=== PATIENT | male | born 1960 | race Caucasian/White ===

== ENCOUNTER 2017-11-10 23:48 | Inpatient (IN) | payer BC ==
[~2017-11-10] VITALS: Ht 182.9 cm; Wt 0.9 kg
[~2017-11-10 23:48] MED LIST: AUGMENTIN 875875 M1 PO; FLOMAX PO; FLURBIPROFEN; HYDROCODONE-AP1 EAC6 PO; LEXAPRO 10 MG T10 M2 PO; NORCO 10-325 T1 EACH PO; NORCO 5-325 TA1 EACH PO; PERCOCET 5-3251 EACH PO; PRILOSEC 10MG C10 MG PO; TAMSULOSIN HCL0.4 M1; VALIUM5 MG PO; VICODIN 5-3001 EACH PO; [UNRECOGNIZED DRUG - OTHER]
[2017-11-11] MEDS ORDERED: FLOMAX0.4 MG PO
[2017-11-11] MEDS ORDERED: CHOLESTEROL MED PO
[2017-11-11] MEDS ORDERED: FLEXERIL PO
[2017-11-11 00:01] VITALS: BP 146/97
[2017-11-11 00:13] LABS: ABSOLUTE BASOPHILS 0.1 thou/uL (0.0-0.2); ABSOLUTE EOSINOPHILS 0.2 thou/uL (0.0-0.7); ABSOLUTE LYMPHOCYTES 2.2 thou/uL (0.8-5.3); ABSOLUTE MONOCYTES 0.6 thou/uL (0.0-1.2); ABSOLUTE NEUTROPHILS 7.9 thou/uL (1.6-8.1); BASOPHILS 0.8 %; EOSINOPHILS 1.4 %; HEMATOCRIT 37.1 % (42.0-52.0); HEMOGLOBIN 13.1 gm/dL (14.0-18.0); LYMPHOCYTES 19.8 %; MCH 31.7 pg (26.0-34.0); MCHC 35.2 g/dL (28.0-37.0); MONOCYTES 5.3 %; MPV 8.1 fl. (7.2-11.1); NUCLEATED RBCS 0 /100WBC; PLATELET COUNT* 339 thou/uL (150-400); POLYS 72.7 %; RBC 4.12 mil/uL (4.50-6.00); WBC 10.9 thou/uL (4.0-11.0)
[2017-11-11 00:15] LABS: URINE BILIRUBIN NEGATIVE (Negative); URINE BLOOD 3+ (Negative); URINE COLOR RED; URINE GLUCOSE-RANDOM NEGATIVE (Negative); URINE KETONES NEGATIVE (Negative); URINE LEUKOCYTES-REFLEX NEGATIVE (Negative); URINE NITRITE-REFLEX NEGATIVE (Negative); URINE PROTEIN 3+ (Negative); URINE UROBILINOGEN 0.2 E.U./dl (0.2-1.0)
[2017-11-11 00:16] LABS: URINE CLARITY CLOUDY
[2017-11-11 00:23] LABS: CALCIUM 8.8 mg/dL (8.5-10.1); CREATININE 1.1 mg/dL (0.6-1.3); POTASSIUM 3.5 mmol/L (3.5-5.1)
[2017-11-11 00:33] LABS: ALBUMIN 4.2 g/dL (3.4-5.0); TOTAL BILIRUBIN 0.3 mg/dL (<0.1-1.0); TOTAL PROTEIN 7.9 g/dL (6.4-8.2)
[2017-11-11 00:41] LABS: CASTS None Seen /LPF (None Seen); SQUAMOUS NONE SEEN /LPF (0-3)
[2017-11-11 00:42] LABS: BACTERIA-REFLEX 1-9 Few /HPF (None Seen); CRYSTALS None Seen /LPF (None Seen); URINE RBC >20 Many /HPF (0-2); URINE WBC-REFLEX 6-15 Few /HPF (0-5)
--- NOTE | 2017-11-11 00:57 | NUR ---
CT ABD/PEL COMPLEATED [ATIENT RETURNED TO ED
[2017-11-11 02:32] VITALS: BP 108/66
[2017-11-11 02:47] VITALS: BP 150/88
--- NOTE | 2017-11-11 02:47 | NUR ---
PT ADMITTED TO FLOOR PER CART ACCOMPANIED BY ER STAFF WITH BELONGINGS. AMBULATES WITH STEADY GAIT FROM CART TO BED. ORIENTED TO ROOM AND CALL LITE. HISTORY OBTAINED AND ASSESSMENT PERFORMED, SEE ADMIT NOTES. PT STATES HIS PAIN IS BETTER BUT "ITS STILL THERE." STATES THE ANXIETY MED HE HAD IN ER "DIDNT DO A THING TO TOUCH MY ANXIETY AFTER THE NEWS I GOT". PT EDUCATED ON NPO STATUS, SMALL AMOUNT ICE CHIPS AND MOUTH SWABS, LIP MOISTURIZER GIVEN FOR COMFORT. CALL LITE IN EASY REACH. IVF PLACED ON PUMP FOR INFUSION.
--- NOTE | 2017-11-11 05:32 | NUR ---
PT HAS RESTED QUIETLY BUT NOT SLEPT SINCE ADMIT, GIRLFRIEND HERE EARLY THIS MORNING TO VISIT WITH PATIENT. RECEIVED IV ANXIETY AND PAIN MED X1 THIS SHIFT WITH FAIR RELIEF. HAS HAD SMALL AMOUNT OF ICE CHIPS, USING SWABS AND LIP MOISTURIZER FOR COMFORT. STANDING AT BEDSIDE USING URINAL TO VOID CRANBERRY URINE, NO CLOTS SEEN, 300ML. LAC IVF INFUSING PER PUMP. UROLOGY CONSULT FOR TODAY. ABLE TO USE CALL LITE AND MAKE NEEDS KNOWN.
[2017-11-11 08:00] VITALS: BP 138/66
[2017-11-11 09:40] LABS: CALCIUM 8.4 mg/dL (8.5-10.1); MAGNESIUM 1.6 mg/dL (1.8-2.4); POTASSIUM 3.3 mmol/L (3.5-5.1)
[2017-11-11 16:00] VITALS: BP 126/74
[2017-11-11 19:30] VITALS: BP 123/62
--- NOTE | 2017-11-11 20:03 | NUR ---
ASSUMED CARE THIS AM, SEE ASSESSMENT FOR DETAILS, ROMEL LUNCH/SUPPER WELL, NO BM SINCE 11/09, CT ABD/CHEST FILM COMPLETED TODAY, CHRONIC BACK PAIN MANAGED WELL WITH MEDICATION, UP AD BETO W/ STEADY GAIT, CARE PLAN REVIEWED W/ PATIENT, DENIES QUESTIONS, CONT POC.
--- NOTE | 2017-11-12 05:11 | NUR ---
PATIENT HAS REMAINED ALERT AND ORIENTED X 4 THROUGHOUT THE SHIFT AND RESTING QUIETLY ON HOURLY ROUNDS. UP IN [place] TO AMBULATE INDEPENDENTLY. STATES WALKING HELPS HIS CHRONIC BACK PAIN. ORAL AND IV MEDS ALSO PROVIDED TO GOOD EFFECT FOR MANAGEMENT OF BACK AND BLADDER PAIN. HAS VOIDED IN GOOD AMOUNTS. LAST VOID AT 0110 WITH POST VOID BLADDER SCAN OF 13ML. URINE AT THAT TIME PINK WITH ONE MOD CLOT. DID NOT CALL RESIDUAL TO PHYSICIAN RELATED TO THE TIME. WILL UPDATE DAYSHIFT ON THAT POINT. NPO AT MIDNIGHT FOR POSSIBLE CYSTOSCOPY THIS AM. PATIENT HAS BEEN SOMEWHAT ANXIOUS ABOUT POSSIBLE DIAGNOSIS. LORAZEPAM PROVIDED X 2 THIS SHIFT. VITAL SIGNS STABLE. CONTINUE TO MONITOR.
[2017-11-12 05:49] LABS: HEMATOCRIT 31.3 % (42.0-52.0); MCH 32.2 pg (26.0-34.0); MCHC 35.1 g/dL (28.0-37.0); MCV 91.8 fL (80.0-100.0); MPV 8.5 fl. (7.2-11.1); RBC 3.41 mil/uL (4.50-6.00); RDW-CV 12.9 % (10.5-14.5); WBC 7.1 thou/uL (4.0-11.0)
[2017-11-12 06:11] LABS: CALCIUM 7.9 mg/dL (8.5-10.1); CREATININE 0.9 mg/dL (0.6-1.3); MAGNESIUM 1.7 mg/dL (1.8-2.4); POTASSIUM 3.9 mmol/L (3.5-5.1)
[2017-11-12 07:45] VITALS: BP 125/77
[2017-11-12] MEDS ORDERED: HYDROXYZINE HCL25 M2 PO (08:01)
[2017-11-12 08:40] VITALS: BP 123/62
--- NOTE | 2017-11-12 09:31 | NUR ---
PATIENT DISCHARGED TO HOME. DISCHARGE PAPERS REVIEWED AND SIGNED. PRESCRIPTIONS AND INFORMATION SHEETS GIVEN. IV REMOVED. UROLOGY OFFICE TO CALL AND SCHEDULE CYSTOSCOPY, OFFICE NUMBER GIVEN. PATIENT DENIES ANY FURTHER NEEDS AT THIS TIME. PATIENT TAKEN AMBULATORY TO EXIT. LEFT WITH SON.
== END 2017-11-12 09:30 | disposition home or self-care (01) | DRG 687 ==
LOC: M.ERS 23:48 → M.TBA-ER 11-11 02:04 → M.ORTHSURG 11-11 02:04 → M.ERS 11-11 02:35 → M.ORTHSURG 11-11 02:43
PROVIDERS: Personal Emergency Response Attendant; ADMIT Internal Medicine
DX: D49.4 Neoplasm of unspecified behavior of bladder (principal); F11.20 Opioid dependence, uncomplicated; R31.0 Gross hematuria; F32.9 Major depressive disorder, single episode, unspecified; F41.0 Panic disorder [episodic paroxysmal anxiety]; N40.1 Benign prostatic hyperplasia with lower urinary tract symptoms; M06.9 Rheumatoid arthritis, unspecified; F17.210 Nicotine dependence, cigarettes, uncomplicated; G89.29 Other chronic pain; Z90.49 Acquired absence of other specified parts of digestive tract; Z79.899 Other long term (current) drug therapy; Z88.8 Allergy status to other drugs, medicaments and biological substances; Z83.3 Family history of diabetes mellitus; Z82.69 Family history of other diseases of the musculoskeletal system and connective tissue

== ENCOUNTER 2017-11-19 15:21 | Emergency (ER) | payer BC ==
[~2017-11-19] VITALS: Ht 185.4 cm; Wt 93.0 kg
[~2017-11-19 15:21] MED LIST changes: +CHOLESTEROL MED PO; +FLEXERIL PO; +FLOMAX0.4 MG PO; +HYDROXYZINE HCL25 M2 PO
[2017-11-19 15:59] VITALS: BP 137/90
== END 2017-11-19 16:00 | disposition home or self-care (01) ==
LOC: M.ERS 15:21
DX: F41.9 Anxiety disorder, unspecified (principal); G89.29 Other chronic pain; R10.30 Lower abdominal pain, unspecified; M54.9 Dorsalgia, unspecified; M06.9 Rheumatoid arthritis, unspecified; Z88.8 Allergy status to other drugs, medicaments and biological substances; Z90.49 Acquired absence of other specified parts of digestive tract

== ENCOUNTER 2019-04-08 22:46 | Emergency (ER) | payer BC ==
[~2019-04-08] VITALS: Ht 182.9 cm; Wt 90.7 kg
[2019-04-08] MEDS ORDERED: FLEXERIL PO (23:08)
[2019-04-08] MEDS ORDERED: NORCO 5-325 TA1 EAC1 PO (23:17)
[2019-04-08] MEDS ORDERED: MEDROLDOSEPACK PO (23:18)
[2019-04-08 23:48] VITALS: BP 133/80
== END 2019-04-08 23:49 | disposition home or self-care (01) ==
LOC: M.ERS 22:46
DX: M54.5 Low back pain (principal); M06.9 Rheumatoid arthritis, unspecified; Z90.49 Acquired absence of other specified parts of digestive tract

== ENCOUNTER 2019-12-20 13:49 | Emergency (ER) | payer BC ==
[~2019-12-20] VITALS: Ht 175.3 cm; Wt 86.2 kg
[~2019-12-20 13:49] MED LIST changes: +MEDROLDOSEPACK PO; +NORCO 5-325 TA1 EAC1 PO
[2019-12-20] MEDS ORDERED: LIPITOR40 MG PO (13:58)
[2019-12-20 14:41] LABS: ABSOLUTE BASOPHILS 0.1 thou/uL (0.0-0.2); ABSOLUTE EOSINOPHILS 0.1 thou/uL (0.0-0.7); ABSOLUTE LYMPHOCYTES 1.8 thou/uL (0.8-5.3); ABSOLUTE MONOCYTES 0.7 thou/uL (0.0-1.2); BASOPHILS 1.3 %; EOSINOPHILS 1.1 %; HEMATOCRIT 35.9 % (42.0-52.0); HEMOGLOBIN 12.9 gm/dL (14.0-18.0); LYMPHOCYTES 20.8 %; MCH 31.5 pg (26.0-34.0); MCHC 35.8 g/dL (28.0-37.0); MCV 87.9 fL (80.0-100.0); MONOCYTES 8.6 %; MPV 7.6 fl. (7.2-11.1); NUCLEATED RBCS 0 /100WBC; PLATELET COUNT* 277 thou/uL (150-400); POLYS 68.2 %; RBC 4.09 mil/uL (4.50-6.00); RDW-CV 12.6 % (10.5-14.5); WBC 8.7 thou/uL (4.0-11.0)
[2019-12-20 14:49] LABS: CALCIUM 8.7 mg/dL (8.5-10.1); CREATININE 1.6 mg/dL (0.6-1.3); POTASSIUM 3.5 mmol/L (3.5-5.1)
[2019-12-20 14:53] LABS: ALBUMIN 4.5 g/dL (3.4-5.0); TOTAL BILIRUBIN 0.7 mg/dL (<0.1-1.0); TOTAL PROTEIN 7.8 g/dL (6.4-8.2)
--- NOTE | 2019-12-20 15:54 | EKG ---
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 Tanner: [facility] : 1960 Requested By: Julee Calderon Order Number: [id number] MD: Horace Campo Measurements Intervals [place] Rate: 88 P: 27 [place]: 135 QRS: -46 QRSD: 125 T: 26 QT: 388 QTc: 470 Interpretive Statements Sinus rhythm Nonspecific IVCD with LAD Left ventricular hypertrophy Baseline wander in lead(s) II,III,aVR,aVL,aVF,V3,V5 No previous ECG available for comparison Electronically Signed On 12-20-2019 15:54:13 CDT by Horace Campo [email or web address] <ELECTRONICALLY SIGNED> By: Horace Campo MD, FACC 12/20/19 1554 1428 1428 Horace Campo MD, [facility] /EPI
[2019-12-20 16:18] LABS: URINE BILIRUBIN NEGATIVE (Negative); URINE BLOOD TRACE (Negative); URINE CLARITY CLEAR; URINE COLOR YELLOW; URINE GLUCOSE-RANDOM NEGATIVE (Negative); URINE KETONES NEGATIVE (Negative); URINE LEUKOCYTES-REFLEX NEGATIVE (Negative); URINE NITRITE-REFLEX NEGATIVE (Negative); URINE PROTEIN 1+ (Negative); URINE UROBILINOGEN 0.2 E.U./dl (0.2-1.0)
[2019-12-20] MEDS ORDERED: IBUPROFEN 800800 M1 PO (16:42)
[2019-12-20] MEDS ORDERED: NORCO 5-325 TA1 EAC2 PO (16:42)
[2019-12-20 16:52] VITALS: BP 139/70
== END 2019-12-20 16:53 | disposition home or self-care (01) ==
LOC: M.ERS 13:49
PROVIDERS: Nurse Practitioner Family
DX: N28.1 Cyst of kidney, acquired (principal); H20.9 Unspecified iridocyclitis; R31.9 Hematuria, unspecified; M06.9 Rheumatoid arthritis, unspecified; G89.29 Other chronic pain; Z85.51 Personal history of malignant neoplasm of bladder; Z90.49 Acquired absence of other specified parts of digestive tract

== ENCOUNTER 2020-05-24 19:24 | Emergency (ER) | payer BC ==
[~2020-05-24] VITALS: Ht 182.9 cm; Wt 95.3 kg
[~2020-05-24 19:24] MED LIST changes: +IBUPROFEN 800800 M1 PO; +LIPITOR40 MG PO; +NORCO 5-325 TA1 EAC2 PO
[2020-05-24 19:46] LABS: ABSOLUTE BASOPHILS 0.1 thou/uL (0.0-0.2); ABSOLUTE EOSINOPHILS 0.1 thou/uL (0.0-0.7); ABSOLUTE LYMPHOCYTES 1.4 thou/uL (0.8-5.3); ABSOLUTE MONOCYTES 0.3 thou/uL (0.0-1.2); ABSOLUTE NEUTROPHILS 4.8 thou/uL (1.6-8.1); EOSINOPHILS 2.1 %; HEMATOCRIT 37.5 % (42.0-52.0); HEMOGLOBIN 13.2 gm/dL (14.0-18.0); LYMPHOCYTES 20.6 %; MCH 31.9 pg (26.0-34.0); MCHC 35.2 g/dL (28.0-37.0); MCV 90.4 fL (80.0-100.0); MONOCYTES 4.2 %; MPV 7.7 fl. (7.2-11.1); NUCLEATED RBCS 0 /100WBC; PLATELET COUNT* 260 thou/uL (150-400); POLYS 72.1 %; RBC 4.15 mil/uL (4.50-6.00); WBC 6.7 thou/uL (4.0-11.0)
[2020-05-24 19:54] LABS: CALCIUM 9.1 mg/dL (8.5-10.1); CREATININE 1.1 mg/dL (0.6-1.3); POTASSIUM 4.3 mmol/L (3.5-5.1)
[2020-05-24] MEDS ORDERED: PREDNISONE50 MG PO (19:55)
[2020-05-24 19:59] LABS: TOTAL BILIRUBIN 0.5 mg/dL (<0.1-1.0); TOTAL PROTEIN 7.3 g/dL (6.4-8.2)
[2020-05-24] MEDS ORDERED: HYDROCODON-ACE1 EAC8 PO (20:10)
[2020-05-24] MEDS ORDERED: FLEXERIL PO (20:41)
[2020-05-24 21:03] VITALS: BP 128/76
== END 2020-05-24 21:04 | disposition home or self-care (01) ==
LOC: M.ERS 19:24
PROVIDERS: Emergency Medicine
DX: M54.16 Radiculopathy, lumbar region (principal); M06.9 Rheumatoid arthritis, unspecified; Z90.49 Acquired absence of other specified parts of digestive tract

== ENCOUNTER 2020-07-20 15:57 | Inpatient (IN) | payer BC ==
[~2020-07-20] VITALS: Ht 182.9 cm; Wt 90.7 kg
--- NOTE | ~2020-07-20 | PROC ---
[address] [address] PROCEDURE REPORT Name: CASSY GREGORY Room: [address] IN M.R.#: [id number] Admission: 07/20/20 Attend Phys: Francisco Jones Discharge: 07/22/20 Date of : 60 Report #: [id number] THIS REPORT FOR: cc: Jose A Lui Adam J DO [facility],Medical Records Staff ~ For GI report, please see the Provation report in Perceptive 7 content. By: 0653Medical Records Staff JONY /VIOLET
[~2020-07-20 15:57] MED LIST changes: +HYDROCODON-ACE1 EAC8 PO; +PREDNISONE50 MG PO
[2020-07-20 16:06] VITALS: BP 136/91
[2020-07-20 16:33] LABS: ABSOLUTE BASOPHILS 0.1 thou/uL (0.0-0.2); ABSOLUTE EOSINOPHILS 0.1 thou/uL (0.0-0.7); ABSOLUTE LYMPHOCYTES 1.6 thou/uL (0.8-5.3); ABSOLUTE MONOCYTES 0.7 thou/uL (0.0-1.2); ABSOLUTE NEUTROPHILS 8.5 thou/uL (1.6-8.1); BASOPHILS 0.7 %; EOSINOPHILS 1.2 %; LYMPHOCYTES 14.6 %; MCH 31.2 pg (26.0-34.0); MCHC 34.1 g/dL (28.0-37.0); MCV 91.4 fL (80.0-100.0); MONOCYTES 6.2 %; MPV 7.8 fl. (7.2-11.1); NUCLEATED RBCS 0 /100WBC; PLATELET COUNT* 301 thou/uL (150-400); POLYS 77.3 %; RBC 4.16 mil/uL (4.50-6.00); RDW-CV 13.3 % (10.5-14.5)
[2020-07-20 16:39] LABS: CALCIUM 8.7 mg/dL (8.5-10.1); CREATININE 1.1 mg/dL (0.6-1.3); POTASSIUM 3.5 mmol/L (3.5-5.1)
[2020-07-20 16:43] LABS: APTT 27.1 Seconds (25.0-31.3); PROTIME 10.5 Seconds (9.20-11.50)
[2020-07-20 16:44] LABS: ALBUMIN 4.1 g/dL (3.4-5.0); TOTAL BILIRUBIN 0.5 mg/dL (<0.1-1.0); TOTAL PROTEIN 8.1 g/dL (6.4-8.2)
[2020-07-20 21:15] VITALS: BP 115/64
[2020-07-21] VITALS (7 sets, daily range): BP systolic 101–133; BP diastolic 56–77
--- NOTE | 2020-07-21 14:07 | EKG ---
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 07/21/20 1407 1628 1628 Horace Campo MD, [facility] /EPI
[2020-07-22] VITALS: BP 113/62
[2020-07-22 04:00] VITALS: BP 110/69
[2020-07-22 04:16] LABS: HEMATOCRIT 31.7 % (42.0-52.0); HEMOGLOBIN 11.2 gm/dL (14.0-18.0); MCHC 35.4 g/dL (28.0-37.0); MCV 90.2 fL (80.0-100.0); RBC 3.52 mil/uL (4.50-6.00); RDW-CV 12.9 % (10.5-14.5); WBC 8.7 thou/uL (4.0-11.0)
[2020-07-22 04:28] LABS: CALCIUM 8.1 mg/dL (8.5-10.1); POTASSIUM 3.5 mmol/L (3.5-5.1)
[2020-07-22 07:30] VITALS: BP 112/40
--- NOTE | 2020-07-22 08:45 | CON ---
[address] [address] CONSULTATION Name: CASSY GREGORYDEN Room: [address] IN M.R.#: [id number] Admission: 07/20/20 Attend Phys: Francisco Jones Discharge: Date of : 60 Report #: [id number] THIS REPORT FOR: cc: Jose A Lui Adam J DO Bodenstab, Johnna L. FNP ~ DOC #: [id number] cc: DO Lisa Patel FNP DATE OF CONSULTATION: 07/21/2020 Please note at the time of this dictation, the patient was seen and physically examined by myself. REASON FOR CONSULTATION: Rectal bleeding and abdominal pain. HISTORY OF PRESENT ILLNESS: This is a 60-year-old male presenting to the emergency room of around 4 a.m. Monday. When going to the bathroom, he states he reported straining and he noted some bright red blood. He states that was his first episode that he ever had. He also had some abdominal discomfort. He continued over the next 36 hours to have two more episodes of bright red blood. He states he had urgency that he needed to go, but was unable to have a bowel movement. He was still complaining of lower abdominal discomfort and with the bright red blood, prompted him to come in to be seen. The patient thus states he had a colonoscopy done maybe 5 or 6 years ago at a freestanding facility in [facility], and will attempt to get those records from them. He denies any nausea, vomiting or any difficulty swallowing or reflux issues at this time. He does mention that he does have issues with constipation and that it may go several days before he has a bowel movement and that has been ongoing. He does not take anything for his bowels at this time. ALLERGIES: No known drug allergies. MEDICATIONS: From home include atorvastatin, and Flomax. He does take [place] for his back pain. PAST MEDICAL HISTORY: Rheumatoid arthritis, history of seizures. He has had some depression and panic attacks, carpal tunnel issues. He has had bladder cancer x 2 with the latest being last fall, chronic back pain. PAST SURGICAL HISTORY: Includes bladder rupture, appendectomy and bladder cancer surgery. FAMILY HISTORY: Negative for any GI [place] [address] CONSULTATION Name: CASSY GREGORY NURY Room: [address]#: [id number] Admission: 07/20/20 Attend Phys: Francisco Jones Discharge: Date of : 60 Report #: [id number] SOCIAL HISTORY: Denies any alcohol, tobacco, or illegal drug use. REVIEW OF SYSTEMS: Twelve point review of systems is essentially negative except what is mentioned in the HPI. PHYSICAL EXAMINATION: VITAL Signs: Temperature 36.8, pulse 66, respirations 18, blood pressure 101/58. HEART: Regular rate and rhythm. LUNGS: Clear. ABDOMEN: Soft, positive bowel sounds in all four quadrants with tenderness noted in the lower quadrant, mainly in the left lower quadrant. LABORATORY DATA: Hemoglobin is 13, white count is 11, platelets 301. PT 10.5, INR is 1. GFR is 68. His LFTs are normal. Lipase is little elevated at 525. CT shows circumferential mural thickening in the sigmoid colon. IMPRESSION: 1. Rectal bleeding. 2. Abdominal pain. 3. Abnormal CT. 4. Leukocytosis. 5. Constipation secondary to narcotic use for chronic back pain. PLAN: 1. Colonoscopy tomorrow with Dr. Hernandez. 2. Obtain records from [facility], Dr. Patterson's office. 3. Continue antibiotics. 4. The patient will need a better bowel regimen upon discharge. 5. Further recommendations to be made after the procedure has been performed. Thank you for allowing us to participate in this patient's care. Please do not hesitate to call with any questions regarding this consult. MD VINCENT Rodney/[facility] <ELECTRONICALLY SIGNED> By: FARHAN Rodas 07/22/20 0845 0719 [id number] You /nt
[2020-07-22 12:00] VITALS: BP 114/57
[2020-07-22 16:00] VITALS: BP 138/75
--- NOTE | 2020-07-27 11:07 | PATH ---
[address] [address] PATHOLOGY RPT PROCEDURE Name: RIAZ PHILLIP Room: [address] IN M.R.#: [id number] Admission: 07/20/20 Date of : 60 Discharge: 07/22/20 Report #: [id number] Path Case #: [id number] [facility] Accession Number: [id number] . 01 Material submitted: . sigmoid colon - SIGMOID BIOPSY . 01 Clinical history: . COLONOSCOPY . 02 Diagnosis: Sigmoid biopsy: - Mild active colitis with focal fibrosis suggestive of ischemic colitis, negative for granulomas, viral inclusions and dysplasia. See comment. (MOO:jacinto; 07/27/2020) S 07/27/2020 1009 Local . 02 Comment: The biopsies reveal benign colonic mucosa with a few neutrophils scattered in the lamina propria and submucosa in association with focal fresh hemorrhage. Fibrosis of the submucosa is noted. No significant basal lymphoplasmacytosis or crypt distortion is present to raise a suspicion of inflammatory bowel disease. (MOO:jacinto; 07/27/2020) . 02 Electronically signed: . Mikael Burgos MD, Pathologist NPI- [id number] . 01 Gross description: . Received in formalin labeled "Riaz Phillip and sigmoid biopsy". Received are multiple sarabia-alvarez soft tissue fragments ranging from 0.2-0.3 cm. Specimen is entirely submitted in cassette A1.(J; 07/23/2020) BLJ/J 07/27/2020 1006 Local . 02 Pathologist provided ICD-10: K52.9 . 02 CPT . 401443 Specimen Comment: A courtesy copy of this report has been sent to [phone] Specimen Comment: [phone], Specimen Comment: Report sent to , / Performed at: [address] [facility], [place] [id number] MD Preston Yanes MD Phone: [phone] [place] [address] PATHOLOGY RPT PROCEDURE Name: RIAZ PHILLIP Room: [address] IN M.R.#: [id number] Admission: 07/20/20 Date of : 60 Discharge: 07/22/20 Report #: [id number] Path Case #: [id number] Performed at: 02 [facility] Khurram Trejo [address] Marcella Monroy, MIGUEL Luciano [id number] MD Mikael Burgos MD Phone: [phone]
== END 2020-07-22 18:44 | disposition left against medical advice (07) | DRG 394 ==
LOC: M.ERS 15:57 → M.TBA-ER 17:11 → M.2W 17:11
PROVIDERS: Family Medicine; ADMIT Internal Medicine; ATTEND Internal Medicine
PROC: 0DBN8ZX Excision of Sigmoid Colon, Via Natural or Artificial Opening Endoscopic, Diagnostic (ICD-10-PCS; principal; 2020-07-22)
DX: K64.8 Other hemorrhoids (principal); A04.9 Bacterial intestinal infection, unspecified; G89.29 Other chronic pain; M54.9 Dorsalgia, unspecified; M06.9 Rheumatoid arthritis, unspecified; D72.829 Elevated white blood cell count, unspecified; R93.3 Abnormal findings on diagnostic imaging of other parts of digestive tract; F32.9 Major depressive disorder, single episode, unspecified; K63.89 Other specified diseases of intestine; F41.9 Anxiety disorder, unspecified; Z53.21 Procedure and treatment not carried out due to patient leaving prior to being seen by health care provider; Z20.822 Contact with and (suspected) exposure to COVID-19; Z90.49 Acquired absence of other specified parts of digestive tract; Z85.51 Personal history of malignant neoplasm of bladder; Z79.899 Other long term (current) drug therapy